=== PATIENT | male | born 1995 | race Caucasian/White ===

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

== ENCOUNTER 2017-09-21 16:29 | Emergency (ER) | payer BC, OTHER ==
[~2017-09-21] VITALS: Ht 185.4 cm; Wt 91.3 kg
[2017-09-21 16:33] VITALS: TEMP 37; Ht 185.4 cm; Wt 91.3 kg
[2017-09-21] MEDS ORDERED: KETOROLAC TROMETHAMINE 30 MG/ML VIAL IV STA (16:41)
[2017-09-21] MEDS ORDERED: LANS30CA12 PO (16:56)
[2017-09-21 17:06] LABS: BASO % 0.1 %; BASO ABS # 0.01 K/uL (0-0.2); COMPLETE YES; EOS % 0.7 %; HEMATOCRIT 44.8 % (42-52); IG% 0.1 %; LYMPH % 25.4 %; MEAN CELL VOLUME 87.8 fL (80-100); MEAN CORPUSCULAR HGB CONC 36.4 g/dl (32-36); MEAN PLATELET VOLUME 11.5 fL (7.4-10.4); MONO % 9.7 %; PLATELET COUNT 164 K/uL (130-400); WHITE BLOOD COUNT 7.08 K/uL (4.8-10.8)
--- NOTE | 2017-09-21 17:18 | DIAGNOSTIC IMAGING REPORT ---
CHEST ONE VIEW PORTABLE HISTORY: 22 years-old Male cp acute atypical chest pain COMPARISON: None available TECHNIQUE: Upright AP view of the chest FINDINGS: Cardiomediastinal and hilar silhouettes are within normal limits. There is no pneumothorax, pleural effusion, focal airspace consolidation or overt pulmonary edema. Bones of the chest are grossly intact. IMPRESSION: No acute cardiopulmonary process. The above report was generated using voice recognition software. It may contain grammatical, syntax or spelling errors. Electronically signed by: Kwadwo Florian M.D. 09/21/2017 5:17 PM Dictated Date/Time: 09/21/2017 5:15 PM
[2017-09-21 17:23] LABS: ALT/SGPT 27 U/L (12-78); BLOOD UREA NITROGEN 18 mg/dl (7-18); BUN/CREATININE RATIO 13.9 (10-20); CALCIUM 9.2 mg/dl (8.5-10.1); CARBON DIOXIDE 27 mmol/L (21-32); CHLORIDE 103 mmol/L (98-107); CREATININE 1.31 mg/dl (0.60-1.40); GLUCOSE 106 mg/dl (70-99); POTASSIUM 3.6 mmol/L (3.5-5.1); SODIUM 140 mmol/L (136-145)
[2017-09-21 17:28] LABS: ALKALINE PHOSPHATASE 77 U/L (45-117); AST/SGOT 18 U/L (15-37)
[2017-09-21 17:35] LABS: URINE APPEARANCE CLEAR (CLEAR); URINE BILIRUBIN NEG (NEG); URINE COLOR DK YELLOW; URINE EPITHELIAL CELL AUTO 0-5 /lpf (0-5); URINE NITRITE NEG (NEG); URINE PH 7.5 (4.5-7.5); URINE SPECIFIC GRAVITY 1.029 (1.000-1.030); UROBILINOGEN NEG (NEG); ZZUR CULT IF INDIC CLEAN CATCH NO
[2017-09-21 17:39] LABS: MANUAL MICROSCOPIC REQUIRED? NO; REVIEW REQ? NO
--- NOTE | 2017-09-21 19:39 | DIAGNOSTIC IMAGING REPORT ---
GALLBLADDER-ABD LIMITED HISTORY: 22 years-old Male ruq abd pain acute right upper quadrant abdominal pain COMPARISON: None available TECHNIQUE: Multiple real-time sonographic images of the abdominal right upper quadrant were obtained assessing grayscale appearance and color Doppler flow FINDINGS: Imaged pancreas is unremarkable. Distal pancreas body and tail are obscured by bowel gas. The liver is unremarkable. No intrahepatic biliary ductal dilation or focal mass identified. Common bile duct is normal, 0.2 cm. There is moderate contraction of the gallbladder. No pericholecystic fluid collections or shadowing cholelithiasis. The right kidney is unremarkable measuring up to 14.1 cm in length. No hydronephrosis. IMPRESSION: 1. No cholelithiasis or acute cholecystitis. 2. No biliary ductal dilation. The above report was generated using voice recognition software. It may contain grammatical, syntax or spelling errors. Electronically signed by: Kwadwo Florian M.D. 09/21/2017 7:38 PM Dictated Date/Time: 09/21/2017 7:36 PM
--- NOTE | 2017-09-21 19:42 | DIAGNOSTIC IMAGING REPORT ---
ABDOMEN LIMITED (US) HISTORY: 22 years-old Male focal mass in ruq on skin palpable mass of the superficial subcutaneous right upper abdomen COMPARISON: None available TECHNIQUE: Multiple real-time sonographic images of the subcutaneous tissues of the right midabdomen were obtained assessing grayscale appearance and color flow. FINDINGS: Within the area of concern within the subcutaneous tissues there is a complex hypoechoic ovoid avascular structure, 1.7 x 1.9 x 1.2 cm which is oriented parallel to the skin surface and demonstrates increased through transmission. There is a non-shadowing increased echogenicity are seen centrally within this lesion. Lesion appears to be centered within the subcutaneous fat. IMPRESSION: Area of palpable concern correlates with a nonspecific complex circumscribed ovoid lesion within the subcutaneous tissues measuring up to 1.9 cm without internal vascularity documented. The above report was generated using voice recognition software. It may contain grammatical, syntax or spelling errors. Electronically signed by: Kwadwo Florian M.D. 09/21/2017 7:41 PM Dictated Date/Time: 09/21/2017 7:38 PM
[2017-09-21 20:01] VITALS: BP 120/62; PULSE 70; O2SAT 99
--- NOTE | 2017-09-21 21:29 | EMERGENCY ROOM VISIT NOTE ---
History Report prepared by Marguerite: Jose Nelson Under the Supervision of: Dr. Cory Gutierrez D.O. First contact with patient: 16:35 Chief Complaint: ABDOMINAL PAIN Stated Complaint: STOMACH LUMP PAIN History of Present Illness The patient is a 22 year old male who presents to the Emergency Room with complaints of worsening right-sided abdominal pain that started 2 days ago. He says that he has had a lump on the right side of his abdomen for a year now, and has gotten it checked out twice, and was told that there were no issues. The patient notes that for the past 2 days, he has started to have bad pain on the right side of his abdomen, which he describes as a cramping pain. He adds that he has also been very lethargic recently, and he intermittently feels like he will pass out. He notes that he has had constant chest pain, more on the right side, as well as shortness of breath for a month now. He describes the chest pain as a pressure. The patient says that resting makes the pain better, and movement makes the pain worse. He states that he has had some burning with urination intermittently recently. He denies any vomiting, diarrhea, hematochezia, or melena. The patient says that he is a former smoker. He notes no chronic medical problems. Patient denies swelling of calves, recent trips, history of immobilization or recent surgery, prior history of DVT, hemoptysis, history of malignancy, or control/estrogen use. Patient denies diabetes, hypertension, hyperlipidemia, CAD, and history of sudden at a young age. Source of History: patient Onset: 2 days ago Position: abdomen (right) Quality: other (lump was not painful until 2 days ago) Timing: worsening Associated Symptoms: + chest pain, + SOB, + urinary symptoms, + fatigue, No vomiting, No melena, No hematochezia, No diarrhea Note: Associated symptoms: Denies calf swelling. Review of Systems See HPI for pertinent positives & negatives. A total of 10 systems reviewed and were otherwise negative. Past Medical & Surgical Medical Problems: (1) No significant past medical history Surgical Problems: (1) History of ankle surgery Family History FH: cancer FH: diabetes mellitus FH: hypertension Social History Smoking Status: Former Smoker Alcohol Use: occasionally Marital Status: single Occupation Status: [employer] student Current/Historical Medications Scheduled Lansoprazole (Prevacid), 30 MG PO DAILY Allergies Coded Allergies: No Known Allergies (Unverified , 09/21/17) Physical Exam Vital Signs Date Time Temp Pulse Resp B/P (MAP) Pulse Ox O2 Delivery O2 Flow Rate FiO2 09/21/17 20:01 70 18 120/62 99 09/21/17 17:59 73 18 140/77 99 Room Air 09/21/17 16:33 37.0 84 18 167/90 99 Room Air Physical Exam GENERAL: Sitting up in bed, alert, well appearing, well nourished, no distress, non-toxic EYE EXAM: normal conjunctiva. OROPHARYNX: no exudate, no erythema, lips, buccal mucosa, and tongue normal and mucous membranes are moist NECK: supple, no nuchal rigidity, no adenopathy, non-tender LUNGS: Clear to auscultation. Normal chest wall mechanics HEART: no murmurs, S1 normal and S2 normal ABDOMEN: Abdomen soft, non-tender, normo-active bowel sounds, no masses, no midline tenderness, no CVA tenderness. There is a small 2 cm palpable mass in the right upper quadrant, superficially on skin without surrounding erythema or induration. SKIN: no rashes and no bruising UPPER EXTREMITIES: upper extremities are grossly normal. LOWER EXTREMITIES: No pitting edema. NEURO EXAM: Normal sensorium, cranial nerves II-XII grossly intact, normal speech, no gross weakness of arms, no gross weakness of legs. Medical Decision & Procedures ER Provider Diagnostic Interpretation: Radiology results as stated below per my review and the radiologist's interpretation: GALLBLADDER-ABD LIMITED HISTORY: 22 years-old Male ruq abd pain acute right upper quadrant abdominal pain COMPARISON: None available TECHNIQUE: Multiple real-time sonographic images of the abdominal right upper quadrant were obtained assessing grayscale appearance and color Doppler flow FINDINGS: Imaged pancreas is unremarkable. Distal pancreas body and tail are obscured by bowel gas. The liver is unremarkable. No intrahepatic biliary ductal dilation or focal mass identified. Common bile duct is normal, 0.2 cm. There is moderate contraction of the gallbladder. No pericholecystic fluid collections or shadowing cholelithiasis. The right kidney is unremarkable measuring up to 14.1 cm in length. No hydronephrosis. IMPRESSION: 1. No cholelithiasis or acute cholecystitis. 2. No biliary ductal dilation. The above report was generated using voice recognition software. It may contain grammatical, syntax or spelling errors. Electronically signed by: Kwadwo Florian M.D. 09/21/2017 7:38 PM Dictated Date/Time: 09/21/2017 7:36 PM CHEST ONE VIEW PORTABLE HISTORY: 22 years-old Male cp acute atypical chest pain COMPARISON: None available TECHNIQUE: Upright AP view of the chest FINDINGS: Cardiomediastinal and hilar silhouettes are within normal limits. There is no pneumothorax, pleural effusion, focal airspace consolidation or overt pulmonary edema. Bones of the chest are grossly intact. IMPRESSION: No acute cardiopulmonary process. The above report was generated using voice recognition software. It may contain grammatical, syntax or spelling errors. Electronically signed by: Kwadwo Florian M.D. 09/21/2017 5:17 PM Dictated Date/Time: 09/21/2017 5:15 PM ABDOMEN LIMITED (US) HISTORY: 22 years-old Male focal mass in ruq on skin palpable mass of the superficial subcutaneous right upper abdomen COMPARISON: None available TECHNIQUE: Multiple real-time sonographic images of the subcutaneous tissues of the right midabdomen were obtained assessing grayscale appearance and color flow. FINDINGS: Within the area of concern within the subcutaneous tissues there is a complex hypoechoic ovoid avascular structure, 1.7 x 1.9 x 1.2 cm which is oriented parallel to the skin surface and demonstrates increased through transmission. There is a non-shadowing increased echogenicity are seen centrally within this lesion. Lesion appears to be centered within the subcutaneous fat. IMPRESSION: Area of palpable concern correlates with a nonspecific complex circumscribed ovoid lesion within the subcutaneous tissues measuring up to 1.9 cm without internal vascularity documented. The above report was generated using voice recognition software. It may contain grammatical, syntax or spelling errors. Electronically signed by: Kwadwo Florian M.D. 09/21/2017 7:41 PM Dictated Date/Time: 09/21/2017 7:38 PM Laboratory Results 09/21/17 16:55 Red Blood Count 5.10, Mean Corpuscular Volume 87.8, Mean Corpuscular Hemoglobin 32.0, Mean Corpuscular Hemoglobin Concent 36.4, Mean Platelet Volume 11.5, Neutrophils (%) (Auto) 64.0, Lymphocytes (%) (Auto) 25.4, Monocytes (%) (Auto) 9.7, Eosinophils (%) (Auto) 0.7, Basophils (%) (Auto) 0.1, Neutrophils # (Auto) 4.52, Lymphocytes # (Auto) 1.80, Monocytes # (Auto) 0.69, Eosinophils # (Auto) 0.05, Basophils # (Auto) 0.01 09/21/17 16:55 Test 09/21/17 16:55 09/21/17 17:15 White Blood Count 7.08 K/uL (4.8-10.8) Red Blood Count 5.10 M/uL (4.7-6.1) Hemoglobin 16.3 g/dL (14.0-18.0) Hematocrit 44.8 % (42-52) Mean Corpuscular Volume 87.8 fL (80-100) Mean Corpuscular Hemoglobin 32.0 pg (25-34) Mean Corpuscular Hemoglobin Concent 36.4 g/dl (32-36) Platelet Count 164 K/uL (130-400) Mean Platelet Volume 11.5 fL (7.4-10.4) Neutrophils (%) (Auto) 64.0 % Lymphocytes (%) (Auto) 25.4 % Monocytes (%) (Auto) 9.7 % Eosinophils (%) (Auto) 0.7 % Basophils (%) (Auto) 0.1 % Neutrophils # (Auto) 4.52 K/uL (1.4-6.5) Lymphocytes # (Auto) 1.80 K/uL (1.2-3.4) Monocytes # (Auto) 0.69 K/uL (0.11-0.59) Eosinophils # (Auto) 0.05 K/uL (0-0.5) Basophils # (Auto) 0.01 K/uL (0-0.2) RDW Standard Deviation 39.6 fL (36.4-46.3) RDW Coefficient of Variation 12.4 % (11.5-14.5) Immature Granulocyte % (Auto) 0.1 % Immature Granulocyte # (Auto) 0.01 K/uL (0.00-0.02) D-Dimer < 190 ug/L FEU (0-500) Anion Gap 10.0 mmol/L (3-11) Est Creatinine Clear Calc Drug Dose 101.6 ml/min Estimated GFR () 90.2 Estimated GFR (Non- 77.8 BUN/Creatinine Ratio 13.9 (10-20) Calcium Level 9.2 mg/dl (8.5-10.1) Total Bilirubin 1.2 mg/dl (0.2-1) Direct Bilirubin 0.4 mg/dl (0-0.2) Aspartate Amino Transf (AST/SGOT) 18 U/L (15-37) Alanine Aminotransferase (ALT/SGPT) 27 U/L (12-78) Alkaline Phosphatase 77 U/L (45-117) Troponin I < 0.015 ng/ml (0-0.045) Total Protein 7.4 gm/dl (6.4-8.2) Albumin 4.3 gm/dl (3.4-5.0) Lipase 122 U/L (73-393) Urine Color DK YELLOW Urine Appearance CLEAR (CLEAR) Urine pH 7.5 (4.5-7.5) Urine Specific [place] 1.029 (1.000-1.030) Urine Protein NEG (NEG) Urine Glucose (UA) NEG (NEG) Urine Ketones TRACE (NEG) Urine Occult Blood NEG (NEG) Urine Nitrite NEG (NEG) Urine Bilirubin NEG (NEG) Urine Urobilinogen NEG (NEG) Urine Leukocyte Esterase NEG (NEG) Urine WBC (Auto) 0 /hpf (0-5) Urine RBC (Auto) 0-4 /hpf (0-4) Urine Hyaline Casts (Auto) 0 /lpf (0-5) Urine Epithelial Cells (Auto) 0-5 /lpf (0-5) Urine Bacteria (Auto) NEG (NEG) Laboratory results per my review. Medications Administered Medications (Trade) Dose Ordered Sig/Alvaro Route Start Time Stop Time Status Last Admin Dose Admin Ketorolac Tromethamine (Toradol Inj) 30 mg NOW STAT IV 09/21/17 16:41 09/21/17 16:43 DC 09/21/17 17:11 30 MG ECG Indication: abdominal pain Rate (beats per minute): 68 Rhythm: sinus rhythm Findings: no ectopy, other (normal axis) ED Course ED COURSE: Vital signs were reviewed and showed hypertensive situational vitals. The patients medical record was reviewed The above diagnostic studies were performed and reviewed. ED treatments and interventions as stated above. 1636: The patient was evaluated in room A11B. A complete history and physical examination was performed. 1640: Ordered Toradol Inj 30 mg IV. 1934: I reevaluated the patient and he is feeling well. 1953: Upon reevaluation, the patient is resting comfortably.I discussed my findings with the patient and he understands and agrees with the treatment plan. Based on the patients age, coexisting illnesses, exam and lab findings the decision to treat as an outpatient was made. The patient remained stable while under my care. The patient appeared well at the time of discharge. Medical Decision Differential diagnoses includes but is not limited to gastritis, peptic ulcer disease, GERD, gallbladder disease, pancreatitis, small bowel obstruction, acute coronary syndrome, pericarditis, ischemic bowel, irritable bowel disease, irritable bowel syndrome, appendicitis, diverticulitis, malignancy, hernia, urinary tract infection, torsion, perforation, trauma, infectious. Patient is a 22-year-old male who presents to ER for right upper quadrant abdominal mass. In the soft tissue there is a palpable 2-3 cm firm nodule. No surrounding erythema or induration. Ultrasound shows that this is an that a tissue. Ultrasound gallbladder is unremarkable. CBC all BMP and LFTs was normal. Bilirubin slightly elevated at 1.2. Lipase is normal. UA without signs of infection. Patient rested comfortably in the ER. Vitals stable/ unremarkable. Recommended following up with PCP/dermatology for abdominal wall mass. Chest pain present for longer than 6 hours with a negative troponin and unremarkable EKG. D-dimer was negative. Chest x-ray unremarkable. Discussed with Pt concerning signs and symptoms to watch out for. Pt was instructed to follow up with their PCP and discussed with the patient their option to return to the ED at anytime for persistent or worsening symptoms. The appropriate anticipatory guidance and out-patient management, including indications for return to the emergency department, were explained at length to the patient and understood. Medication Reconcilliation Current Medication List: was personally reviewed by me Blood Pressure Screening Patient's blood pressure: Elevated blood pressure Blood pressure disposition: Elevated BP felt to be situational Impression Primary Impression: Abdominal pain Additional Impression: Subcutaneous mass Scribe Attestation The scribe's documentation has been prepared under my direction and personally reviewed by me in its entirety. I confirm that the note above accurately reflects all work, treatment, procedures, and medical decision making performed by me. Departure Information Dispostion Home / Self-Care Referrals No Doctor, Assigned (PCP) [facility] Patient Instructions Abdominal Pain - [facility], My [facility] Additional Instructions Please follow up with your primary care doctor or if you are a student, [facility] with in the next 24 hours. Any worsening of your symptoms, please return to the ED immediately. This includes any fevers greater than 100.4, worsening pain, chest pain, shortness breath, persistent nausea, vomiting, unable to eat or drink, or any other concerning signs or symptoms from your standpoint. Please have this lesion followed up by either dermatology or the surgeon. Please take Tylenol or Motrin as needed for pain. Problem Qualifiers Primary Impression: Abdominal pain Abdominal location: unspecified location Qualified Codes: R10.9 - Unspecified abdominal pain
== END 2017-09-21 20:01 | disposition home or self-care (01) ==
LOC: C.EDB 16:30 → C.EDA 20:01
DX: R10.31 Right lower quadrant pain (principal); R10.11 Right upper quadrant pain; R22.2 Localized swelling, mass and lump, trunk; Z87.891 Personal history of nicotine dependence; Z83.3 Family history of diabetes mellitus; Z82.49 Family history of ischemic heart disease and other diseases of the circulatory system

== ENCOUNTER 2017-09-26 14:14 | Emergency (ER) | payer BC ==
[~2017-09-26] VITALS: Ht 185.4 cm; Wt 90.8 kg
[~2017-09-26 14:14] MED LIST: LANS30CA12 PO
[2017-09-26 14:16] VITALS: TEMP 36.6; Ht 185.4 cm; Wt 90.8 kg
[2017-09-26] MEDS ORDERED: CEFTRIAXONE SOD INJ 1 GM ADDVIAL IV STA (14:33)
[2017-09-26] MEDS ORDERED: OPTIRAY 320 IV PRN (14:45)
[2017-09-26 15:20] LABS: HEMATOCRIT 46.1 % (42-52); MEAN CELL VOLUME 88.8 fL (80-100); MEAN PLATELET VOLUME 12.2 fL (7.4-10.4); PLATELET COUNT 166 K/uL (130-400); RED BLOOD COUNT 5.19 M/uL (4.7-6.1); WHITE BLOOD COUNT 8.36 K/uL (4.8-10.8)
[2017-09-26 15:36] LABS: BUN/CREATININE RATIO 14.9 (10-20); CALCIUM 9.5 mg/dl (8.5-10.1); CREATININE 1.17 mg/dl (0.60-1.40); POTASSIUM 4.2 mmol/L (3.5-5.1)
--- NOTE | 2017-09-26 16:34 | DIAGNOSTIC IMAGING REPORT ---
CT OF THE ABDOMEN AND PELVIS WITH CONTRAST CLINICAL HISTORY: Severe pain. Anterior right abdominal wall subcutaneous infection. COMPARISON STUDY: Abdominal ultrasound performed earlier today. TECHNIQUE: Following IV administration of 119 mL of Optiray-320, axial images of the abdomen and pelvis were obtained from the lung bases to the proximal femurs. Images were reviewed in the axial, sagittal, and coronal planes. IV contrast was administered without complication. A dose lowering technique was utilized adhering to the principles of ALARA. 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 There is no significant hydronephrosis. There is no biliary or pancreatic ductal dilatation. The caliber and wall thickness of small and large bowel are normal. The appendix is normal. There is no ascites. There is no lymphadenopathy. Note is made of a 1.9 cm round water attenuation subcutaneous abnormality of the right anterior abdominal wall which corresponds to the abnormality shown on prior ultrasound. This is thin peripheral enhancement. There is no significant adjacent infiltration. IMPRESSION: 1.9 cm round water attenuation subcutaneous abnormality of the right anterior abdominal wall which corresponds to the finding shown on prior ultrasound. CT appearance is nonspecific although a sebaceous cyst is favored. Superimposed infection cannot be excluded by CT. Clinical follow up to ensure stability is recommended. Electronically signed by: Mark Spaulding M.D. 09/26/2017 4:32 PM Dictated Date/Time: 09/26/2017 4:26 PM
[2017-09-26] MEDS ORDERED: CEPH500C PO (16:59)
--- NOTE | 2017-09-26 17:00 | EMERGENCY ROOM VISIT NOTE ---
History Report prepared by Marguerite: Jean Marie Menchaca Under the Supervision of: Dr. Misha Wilkins D.O. First contact with patient: 14:29 Chief Complaint: PAIN (GENERALIZED) Stated Complaint: SEVERE PAIN History of Present Illness The patient is a 22 year old male who presents to the Emergency Room with complaints of worsening abdominal pain for the past 5 days. The patient states that he was in the ED five days ago and was diagnosed with a lipoma. She states that he is currently having abdominal cramping which is shooting down his leg, he is fatigued, and he has a headache which has started 3 days ago. The patient notes that he has a bump on his abdomen which has been there for about a year, however it has not given him pain until the past month. Source of History: patient Onset: 5 days ago Position: abdomen Quality: cramping Timing: worsening Associated Symptoms: + headache, + fatigue Note: Associated symptoms: leg pain Review of Systems See HPI for pertinent positives & negatives. A total of 10 systems reviewed and were otherwise negative. Past Medical & Surgical Medical Problems: (1) No significant past medical history Surgical Problems: (1) History of ankle surgery Family History FH: cancer FH: diabetes mellitus FH: hypertension Social History Smoking Status: Current Every Day Smoker Alcohol Use: occasionally Marital Status: single Occupation Status: [employer] student Current/Historical Medications Scheduled Cephalexin Monohydrate (Keflex), 500 MG PO QID Lansoprazole (Prevacid), 30 MG PO DAILY Allergies Coded Allergies: No Known Allergies (Unverified , 09/26/17) Physical Exam Vital Signs Date Time Temp Pulse Resp B/P (MAP) Pulse Ox O2 Delivery O2 Flow Rate FiO2 09/26/17 17:15 66 16 139/87 98 09/26/17 15:16 78 18 118/72 98 Room Air 09/26/17 14:16 36.6 89 20 159/85 97 Room Air Physical Exam CONSTITUTIONAL/VITAL SIGNS: Reviewed / noted above. GENERAL: Non-toxic in appearance. INTEGUMENTARY: Warm, dry, and Aneth. HEAD: Normocephalic. EYES: without scleral icterus or trauma. ENT/OROPHARYNX: clear and moist. LYMPHADENOPATHY/NECK: Is supple without lymphadenopathy or meningismus. RESPIRATORY: Lungs clear and equal. CARDIOVASCULAR: Regular rate and rhythm. GI/ABDOMEN: 1 inch diameter subcutaneous mass in the right anterior abdominal wall just superior and lateral to the umbilical area. Superficial redness and tenderness overlying the mass. Soft. No organomegaly. No rebound or guarding. Normal bowel sounds. EXTREMITIES: Warm and well perfused. BACK: No CVA tenderness. NEUROLOGICAL: Intact without focal deficits. PSYCHIATRIC: normal affect. MUSCULOSKELETAL: Normally developed with good muscle tone. Medical Decision & Procedures ER Provider Diagnostic Interpretation: Radiology results as stated below per my review and radiologist interpretation: CT OF THE ABDOMEN AND PELVIS WITH CONTRAST CLINICAL HISTORY: Severe pain. Anterior right abdominal wall subcutaneous infection. COMPARISON STUDY: Abdominal ultrasound performed earlier today. TECHNIQUE: Following IV administration of 119 mL of Optiray-320, axial images of the abdomen and pelvis were obtained from the lung bases to the proximal femurs. Images were reviewed in the axial, sagittal, and coronal planes. IV contrast was administered without complication. A dose lowering technique was utilized adhering to the principles of ALARA. 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 There is no significant hydronephrosis. There is no biliary or pancreatic ductal dilatation. The caliber and wall thickness of small and large bowel are normal. The appendix is normal. There is no ascites. There is no lymphadenopathy. Note is made of a 1.9 cm round water attenuation subcutaneous abnormality of the right anterior abdominal wall which corresponds to the abnormality shown on prior ultrasound. This is thin peripheral enhancement. There is no significant adjacent infiltration. IMPRESSION: 1.9 cm round water attenuation subcutaneous abnormality of the right anterior abdominal wall which corresponds to the finding shown on prior ultrasound. CT appearance is nonspecific although a sebaceous cyst is favored. Superimposed infection cannot be excluded by CT. Clinical follow up to ensure stability is recommended. Electronically signed by: Mark Spaulding M.D. 09/26/2017 4:32 PM Dictated Date/Time: 09/26/2017 4:26 PM Laboratory Results 09/26/17 15:05 09/26/17 15:05 Test 09/26/17 15:05 Red Blood Count 5.19 M/uL (4.7-6.1) Mean Corpuscular Volume 88.8 fL (80-100) Mean Corpuscular Hemoglobin 32.0 pg (25-34) Mean Corpuscular Hemoglobin Concent 36.0 g/dl (32-36) RDW Standard Deviation 39.6 fL (36.4-46.3) RDW Coefficient of Variation 12.3 % (11.5-14.5) Mean Platelet Volume 12.2 fL (7.4-10.4) Anion Gap 5.0 mmol/L (3-11) Est Creatinine Clear Calc Drug Dose 113.8 ml/min Estimated GFR () 103.4 Estimated GFR (Non- 89.2 BUN/Creatinine Ratio 14.9 (10-20) Calcium Level 9.5 mg/dl (8.5-10.1) Laboratory results as stated above per my review. Medications Administered Medications (Trade) Dose Ordered Sig/Alvaro Route Start Time Stop Time Status Last Admin Dose Admin Ceftriaxone Sodium (Rocephin Inj) 1 gm NOW STAT IV 09/26/17 14:33 09/26/17 14:37 DC 09/26/17 15:39 1 GM ED Course 1429: Previous medical records were reviewed. The patient was evaluated in room A10. A complete history and physical examination was performed. 1433: Rocephin 1gm IV 1702: On reevaluation, the patient is doing well. I discussed the results and findings with the patient. He verbalized agreement of the treatment plan. He was discharged home. Medical Decision Differential diagnosis: Etiologies such as cellulitis, abscess, MRSA infection, DVT, necrotizing fasciitis, dermatitis, drug eruption, as well as others were entertained.. This is a 22-year-old male who presents to the ED with a chief complaint of right sided abdominal wall pain. The patient was seen here 5 days ago for the same thing. At that time it was not reddened or as tenderness as it is now. His exam reveals a 1 cm diameter mass in the right abdominal wall just superior and lateral to the umbilical area that is tender to palpation and slightly red. CBC today is normal as is the PRP. He is not febrile. His vital signs are stable. CT scan reveals a 1.9 cm sebaceous cyst in the right anterior abdominal wall. The patient was given IV Rocephin. He was discharged on Keflex. He will follow-up with Gen. surgery for further evaluation of this. Medication Reconcilliation Current Medication List: was personally reviewed by me Blood Pressure Screening Patient's blood pressure: Elevated blood pressure Blood pressure disposition: Elevated BP felt to be situational Impression Primary Impression: Sebaceous cyst Additional Impression: Infected sebaceous cyst Scribe Attestation The scribe's documentation has been prepared under my direction and personally reviewed by me in its entirety. I confirm that the note above accurately reflects all work, treatment, procedures, and medical decision making performed by me. Departure Information Dispostion Home / Self-Care Prescriptions Cephalexin Monohydrate (Keflex) 500 Mg Cap 500 MG PO QID, #28 CAP Prov: Misha Wilkins, Kierra.O. 09/26/17 Referrals No Doctor, Assigned (PCP) Maria Fernanda Tomlin MD Forms HOME CARE DOCUMENTATION FORM, IMPORTANT VISIT INFORMATION, WORK / SCHOOL INSTRUCTIONS Patient Instructions ED Cyst Sebaceous Infec Abx Tx, My [facility] Additional Instructions Keflex as prescribed. Follow-up with general surgery for further evaluation of your infected sebaceous cyst. Dr. Maria Fernanda Tomlin is listed. Take Tylenol or Motrin for pain. Problem Qualifiers
[2017-09-26 17:15] VITALS: BP 139/87; PULSE 66; O2SAT 98
== END 2017-09-26 17:16 | disposition home or self-care (01) ==
LOC: C.EDB 14:16 → C.EDA 17:16
DX: L72.3 Sebaceous cyst (principal); F17.200 Nicotine dependence, unspecified, uncomplicated; Z98.890 Other specified postprocedural states; Z83.3 Family history of diabetes mellitus; Z82.49 Family history of ischemic heart disease and other diseases of the circulatory system

== ENCOUNTER 2018-01-22 15:22 | Emergency (ER) | payer BC ==
[~2018-01-22] VITALS: Ht 185.4 cm; Wt 95.8 kg
[~2018-01-22 15:22] MED LIST changes: +CEPH500C PO
[2018-01-22 15:26] VITALS: TEMP 37; Ht 185.4 cm; Wt 95.8 kg
[2018-01-22] MEDS ORDERED: DEXAMETHASONE **PF** INJ 10 MG/ML VIAL IM STA (15:41)
--- NOTE | 2018-01-22 15:45 | EMERGENCY ROOM VISIT NOTE ---
ED Visit Note First contact with patient: 15:28 CHIEF COMPLAINT: Low back pain HISTORY OF PRESENT ILLNESS: This 23-year-old male patient presents to the emergency department, ambulatory, via POV, complaining of pain in the low back which began 2 days ago while lifting. The pain was gradual in onset, is now constant and worse with movement. The patient notes the pain as burning and a 10/10. The patient has taken Aleve intermittently without significant relief of the pain. The patient denies any loss of control of their bowel or bladder functions. There has been no leg numbness or weakness, and no change in sensation. The patient does describe some paresthesias radiating down the posterior aspect of the left leg. He does report a history of herniated disc in 1 of his lumbar disks. No nausea or vomiting or abdominal pain. No chest pain or shortness of breath. He states this morning, he was lying on the floor , and was unable to get up due to severe pain. No dysuria or increased urinary frequency. REVIEW OF SYSTEMS: A 10 system review of systems was performed with positives and pertinent negatives listed in the history of present illness. All other systems were reviewed and are negative. ALLERGIES: None MEDICATIONS: Aleve PMH: None SOCIAL HISTORY: The patient is a [employer] student. He lives locally with his roommate. He denies drug, tobacco use. He admits to social alcohol use. PHYSICAL EXAM: VITALS: Vitals are noted on the nurse's note and reviewed by myself. Vital signs stable. GENERAL: This is a 23-year-old white male, in no acute distress, on his cell phone during examination, nondiaphoretic, well-developed well-nourished. SKIN: The skin was without rashes, erythema, edema, or bruising. Capillary refill less than 2 seconds. NECK: Supple without nuchal rigidity. No cervical spine tenderness. No paraspinous muscle tenderness. HEART: Regular rate and rhythm without murmurs gallops or rubs. LUNGS: Clear to auscultation bilaterally without wheezes, rales or rhonchi. ABDOMEN: Positive bowel sounds x 4. Normal tympanic percussion. Soft, nontender, without masses or organomegaly. Castellanos sign negative. MUSCULOSKELETAL: No muscle atrophy, erythema, or edema noted of the back. There is mild tenderness over the lumbar spinous processes. There is tenderness over the paraspinous muscles on the left. There is no tenderness over the thoracic spine or paraspinous muscles. There are muscle spasms present. The patient is slow to move around with maximum tenderness with position changes. Positive straight leg raise test on the left. NEURO: Patient was alert and oriented to person place and time. Normal sensation to light and sharp touch. Deep tendon reflexes 2+ in the lower extremities. Dorsalis pedis pulse 2+ bilaterally. Strength 5/5 and equal in the bilateral lower extremities. RADIOLOGY: L-SPINE MIN 4 VIEWS ROUTINE HISTORY: 23 years-old Male low back pain acute low back pain COMPARISON: CT abdomen and pelvis 09/26/2017 TECHNIQUE: 5 views of the lumbar spine FINDINGS: There are 5 lumbar type nonrib-bearing vertebral segments present. No spondylolysis or spondylolisthesis. No acute fracture, subluxation or significant degenerative changes. Soft tissues are unremarkable. IMPRESSION: No acute fracture or subluxation. The above report was generated using voice recognition software. It may contain grammatical, syntax or spelling errors. Electronically signed by: Kwadwo Florian M.D. 01/22/2018 5:01 PM Dictated Date/Time: 01/22/2018 5:00 PM EMERGENCY DEPARTMENT COURSE: The patient was seen and evaluated as above. Lumbar spine x-ray performed and reviewed by myself and radiologist as above. The patient's symptoms are consistent with a lumbar strain with lumbar radiculopathy. He was given a dose of IM Decadron while here in the emergency department and did note mild to moderate improvement in his symptoms. He will be given a prescription for steroids and a short course of narcotics to help with pain. The patient is encouraged to get plenty of rest and follow-up closely outpatient with his PCP/[facility]. He was certainly invited back to the emergency department for any worsening symptoms or neurological symptoms. All questions were answered to the patient's satisfaction. He was feeling improved prior to discharge. Discharge instructions reviewed, the patient was discharged home in good condition. I attest that I have personally reviewed the patient's current medication list. Patient was found to have normal blood pressure on screening and does not require follow-up. Etiologies such as lumbago, sciatica, cauda equina, epidural abscess, osteomyelitis, fracture, aortic disease, metastatic disease, infection, renal colic, gastrointestinal, as well as others were entertained. DIAGNOSIS: Lumbar strain, lumbar radiculopathy The chart was completed utilizing [employer] Speech voice recognition software. Grammatical errors, random word insertions, pronoun errors, and incomplete sentences are an occasional consequence of this system due to software limitations, ambient noise, and hardware issues. Any formal questions or concerns about the content, text, or information contained within the body of this dictation should be directly addressed to the provider for clarification. Current/Historical Medications Scheduled Lansoprazole (Prevacid), 30 MG PO DAILY Prednisone (Prednisone), 0 PO DAILY Scheduled PRN Naproxen (Aleve), 440 MG PO DAILY PRN for Pain Tramadol Hcl (Ultram), 50 MG PO Q6H PRN for Pain Allergies Coded Allergies: No Known Allergies (Unverified , 01/22/18) Vital Signs Date Time Temp Pulse Resp B/P (MAP) Pulse Ox O2 Delivery O2 Flow Rate FiO2 01/22/18 17:22 77 20 137/86 100 01/22/18 15:26 37.0 78 16 146/88 96 Room Air Medications Administered Medications (Trade) Dose Ordered Sig/Alvaro Route Start Time Stop Time Status Last Admin Dose Admin Dexamethasone Sodium Phosphate (Dexamethasone Inj Pf) 10 mg NOW STAT IM 01/22/18 15:41 01/22/18 15:43 DC 01/22/18 15:57 10 MG Departure Information Impression Primary Impression: Strain of lumbar region Additional Impression: Lumbar radiculopathy, acute Dispostion Home / Self-Care Condition GOOD Prescriptions Tramadol Hcl (ULTRAM) 50 Mg Tab 50 MG PO Q6H Y for Pain, #8 TAB PRN PAIN Prov: Hoa Swain PA-C 01/22/18 Prednisone (Prednisone) 20 Mg Tab 0 PO DAILY, #18 TAB 3 DAILY FOR 3 DAYS, THEN 2 DAILY FOR 3 DAYS, THEN 1 DAILY FOR 3 DAYS. Prov: Hoa Swain PA-C 01/22/18 Referrals No Doctor, Assigned (PCP) [facility] Patient Instructions ED Low Back Pain Injury, My [facility] Additional Instructions You have been treated in the Emergency Department for Back Pain. You have been prescribed tramadol to be used for pain control. This is a narcotic medication. You cannot drive or consume alcohol while on this medicine. This medicine should only be used for pain that cannot be controlled with [id number]-[id number] pain medicines. You have been prescribed Prednisone. This is a steroid which will help decrease your inflammation, redness, and itch. Take this medicine as prescribed. Take the ENTIRE 9 day course. It is best to take steroids early in the morning as PM dosing can affect your sleeping patterns. Start this medication tomorrow, as he received an injection of steroids in the emergency department today. Do not take it with NSAIDs (ibuprofen, Motrin, Advil, naproxen, Aleve). For pain control, you can use the following [id number]-[id number] medicines (if >12 yo): Ibuprofen(Motrin, Advil) may be used for fever or pain. Use 600mg every six hours as needed. Take with food. Avoid using more than 2400mg in a 24 hour period. Do not use 2400mg per day for more than three consecutive days without physician direction. Prolonged inappropriate use can lead to stomach upset or ulcers. Do not take these medications with prednisone. (AND/OR) Acetaminophen(Tylenol) may be used for fever or pain. Use 1000mg every six hours as needed. Avoid using more than 3000mg in a 24 hour period. If this is an acute injury, ice can be applied to the area of pain for the first 3 days to help decrease pain and inflammation. After the first 3 days, a heating pad can be used over the area for continued soothing relief. Follow-up with orthopedics as scheduled next week. Return to the Emergency Department if your current symptoms worsen despite treatment course outlined above, or if you develop any of the following symptoms : intractable pain despite aforementioned treatment course, loss of control of your bowel or bladder, numbness or tingling in your groin, or development of a fever. Problem Qualifiers Primary Impression: Strain of lumbar region Encounter type: initial encounter Qualified Codes: S39.012A - Strain of muscle, fascia and tendon of lower back, initial encounter
[2018-01-22] MEDS ORDERED: NAPR1TAB9 PO (16:27)
--- NOTE | 2018-01-22 17:02 | DIAGNOSTIC IMAGING REPORT ---
L-SPINE MIN 4 VIEWS ROUTINE HISTORY: 23 years-old Male low back pain acute low back pain COMPARISON: CT abdomen and pelvis 09/26/2017 TECHNIQUE: 5 views of the lumbar spine FINDINGS: There are 5 lumbar type nonrib-bearing vertebral segments present. No spondylolysis or spondylolisthesis. No acute fracture, subluxation or significant degenerative changes. Soft tissues are unremarkable. IMPRESSION: No acute fracture or subluxation. The above report was generated using voice recognition software. It may contain grammatical, syntax or spelling errors. Electronically signed by: Kwadwo Florian M.D. 01/22/2018 5:01 PM Dictated Date/Time: 01/22/2018 5:00 PM
[2018-01-22] MEDS ORDERED: TRAM-453 PO (17:13)
[2018-01-22] MEDS ORDERED: PRED20TA PO (17:13)
[2018-01-22 17:22] VITALS: BP 137/86; PULSE 77; O2SAT 100
== END 2018-01-22 17:23 | disposition home or self-care (01) ==
LOC: C.EDB 15:23 → C.EDD 17:23
DX: S39.012A Strain of muscle, fascia and tendon of lower back, initial encounter (principal); X50.0XXA Overexertion from strenuous movement or load, initial encounter; Y92.9 Unspecified place or not applicable; M54.16 Radiculopathy, lumbar region